=== PATIENT | male | born 1950 | race Hispanic/Latino ===

== ENCOUNTER 2019-07-14 10:32 | Emergency (ER) | payer OTHER ==
[~2019-07-14] VITALS: Ht 172.7 cm; Wt 84.4 kg
[2019-07-14 10:45] VITALS: BP 109/78; TEMP 97.5
[2019-07-14 11:19] LABS: PLATELET COUNT 210 K/uL (142-355)
[2019-07-14 11:36] LABS: POTASSIUM 4.3 mmol/L (3.6-5.2); SODIUM 137 mmol/L (136-145)
[2019-07-14 11:43] LABS: PARTIAL THROMBOPLASTIN TIME 23.4 SECONDS (24.5-33.6)
== END 2019-07-14 18:20 | disposition home or self-care (01) ==
LOC: ED 10:32
PROVIDERS: Family Medicine
DX: R07.89 Other chest pain (principal); R06.09 Other forms of dyspnea; R00.0 Tachycardia, unspecified; R42 Dizziness and giddiness
CPT/HCPCS: 36415; 80053; 81000; 82550; 83880; 84484; 85027; 85379; 85610; 85730; 93005; 96360; 99284

== ENCOUNTER 2019-08-28 20:48 | Emergency (ER) | payer OTHER ==
[~2019-08-28] VITALS: Ht 172.7 cm; Wt 84.4 kg
[2019-08-28 21:37] LABS: PLATELET COUNT 218 K/uL (142-355)
[2019-08-28 21:49] LABS: PARTIAL THROMBOPLASTIN TIME 23.3 SECONDS (24.5-33.6)
[2019-08-29 02:47] VITALS: BP 109/81; TEMP 98.1
== END 2019-08-29 02:49 | disposition short-term general hospital (02) ==
LOC: ED 20:48
PROVIDERS: Family Medicine
DX: G45.9 Transient cerebral ischemic attack, unspecified (principal); R41.82 Altered mental status, unspecified
CPT/HCPCS: 80053; 81000; 85027; 85379; 85610; 85730; 93005; 99285

== ENCOUNTER 2019-12-14 11:08 | Outpatient (CLI) | payer OTHER | END 2019-12-14 19:21 | disposition home or self-care (01) | LOC: RAD 11:08 | DX: M54.5 Low back pain (principal) ==

== ENCOUNTER 2020-01-22 09:18 | Outpatient (CLI) | payer OTHER | END 2020-01-22 20:41 | disposition home or self-care (01) | LOC: MRI 09:18 | DX: M54.5 Low back pain (principal) ==

== ENCOUNTER 2020-07-08 15:06 | Outpatient (CLI) | payer OTHER | END 2020-07-08 19:38 | disposition home or self-care (01) | LOC: RAD 15:06 | PROVIDERS: ATTEND Nurse Practitioner Family | DX: Z20.828 Contact with and (suspected) exposure to other viral communicable diseases (principal) ==

== ENCOUNTER 2020-07-12 15:49 | Emergency (ER) | payer OTHER ==
[~2020-07-12] VITALS: Ht 172.7 cm; Wt 84.4 kg
[2020-07-12 19:17] LABS: PLATELET COUNT 269 K/uL (142-355)
[2020-07-12 19:30] LABS: POTASSIUM 4.8 mmol/L (3.6-5.2)
[2020-07-12 21:05] VITALS: BP 90/68; TEMP 97.4
== END 2020-07-12 21:05 | disposition home or self-care (01) ==
LOC: ED 15:49
PROVIDERS: Family Medicine
DX: U07.1 COVID-19 (principal); R09.02 Hypoxemia; R05 Cough
CPT/HCPCS: 36415; 80053; 81000; 85027; 87635; 99283; U0003

== ENCOUNTER 2020-08-11 14:03 | Outpatient (CLI) | payer OTHER ==
[2020-08-11 15:59] LABS: POTASSIUM 4.8 mmol/L (3.6-5.2)
== END 2020-08-11 21:46 | disposition home or self-care (01) ==
LOC: LABW 14:03
PROVIDERS: ATTEND Nurse Practitioner Adult Health
DX: R42 Dizziness and giddiness (principal); R06.02 Shortness of breath; I48.20 Chronic atrial fibrillation, unspecified
CPT/HCPCS: 36415; 80048; 80162

== ENCOUNTER 2020-08-17 10:54 | Outpatient (CLI) | payer OTHER ==
[2020-08-17 11:37] LABS: POTASSIUM 4.2 mmol/L (3.6-5.2)
== END 2020-08-17 22:12 | disposition home or self-care (01) ==
LOC: LABW 10:54
PROVIDERS: ATTEND Nurse Practitioner Adult Health
DX: E86.0 Dehydration (principal); N28.89 Other specified disorders of kidney and ureter
CPT/HCPCS: 36415; 80048

== ENCOUNTER 2020-08-22 16:11 | Outpatient (CLI) | payer OTHER ==
[2020-08-22 17:04] LABS: POTASSIUM 4.4 mmol/L (3.6-5.2)
== END 2020-08-22 21:01 | disposition home or self-care (01) ==
LOC: LABW 16:11
PROVIDERS: ATTEND Nurse Practitioner Adult Health
DX: I48.0 Paroxysmal atrial fibrillation (principal); Z79.899 Other long term (current) drug therapy; E86.0 Dehydration; N28.89 Other specified disorders of kidney and ureter
CPT/HCPCS: 36415; 80048; 80162

== ENCOUNTER 2021-01-06 17:09 | Emergency (ER) | payer OTHER ==
[~2021-01-06] VITALS: Ht 172.7 cm; Wt 85.3 kg
[2021-01-06 18:21] LABS: PLATELET COUNT 239 K/uL (142-355)
[2021-01-06 18:30] LABS: POTASSIUM 3.8 mmol/L (3.6-5.2); SODIUM 131 mmol/L (136-145)
[2021-01-06 18:44] LABS: PARTIAL THROMBOPLASTIN TIME 24.8 SECONDS (24.5-33.6)
[2021-01-06 20:55] VITALS: BP 125/62; TEMP 97.9
== END 2021-01-06 20:55 | disposition home or self-care (01) ==
LOC: ED 17:09
PROVIDERS: Hospitalist
DX: G62.89 Other specified polyneuropathies (principal); Z86.73 Personal history of transient ischemic attack (TIA), and cerebral infarction without residual deficits
CPT/HCPCS: 36415; 80053; 82550; 83880; 84484; 85027; 85610; 85730; 93005; 99283

== ENCOUNTER 2021-02-22 14:00 | Outpatient (CLI) | payer OTHER | END 2021-02-22 20:39 | disposition home or self-care (01) | LOC: LABW 14:00 | PROVIDERS: ATTEND Psychiatry & Neurology Neurology | DX: R20.2 Paresthesia of skin (principal); R73.9 Hyperglycemia, unspecified; E61.1 Iron deficiency | CPT/HCPCS: 36415; 82607; 82728; 82746; 83036; 84165; 84207; 84425; 84443; 86334 ==

== ENCOUNTER 2021-07-11 10:10 | Outpatient (CLI) | payer OTHER | END 2021-07-11 19:18 | disposition home or self-care (01) | LOC: RAD 10:10 | PROVIDERS: ATTEND Nurse Practitioner Family | DX: R09.1 Pleurisy (principal) ==

== ENCOUNTER 2021-08-08 17:40 | Emergency (ER) | payer OTHER ==
[~2021-08-08] VITALS: Ht 172.7 cm; Wt 85.3 kg
[2021-08-08 17:46] VITALS: BP 143/58; TEMP 98.2
== END 2021-08-08 18:38 | disposition home or self-care (01) ==
LOC: ED 17:40
DX: S51.832A Puncture wound without foreign body of left forearm, initial encounter (principal); W54.0XXA Bitten by dog, initial encounter; Y92.89 Other specified places as the place of occurrence of the external cause
CPT/HCPCS: 90715; 96372; 99283; J0690; J1885

== ENCOUNTER 2021-10-30 16:55 | Outpatient (CLI) | payer OTHER ==
[2021-10-30 18:00] LABS: PLATELET COUNT 205 K/uL (142-355)
[2021-10-30 18:14] LABS: POTASSIUM 4.7 mmol/L (3.6-5.2)
== END 2021-10-30 19:20 | disposition home or self-care (01) ==
LOC: LABW 16:55
PROVIDERS: ATTEND Plastic Surgery
DX: Z01.812 Encounter for preprocedural laboratory examination (principal); Z01.818 Encounter for other preprocedural examination; Z01.811 Encounter for preprocedural respiratory examination; Z01.810 Encounter for preprocedural cardiovascular examination; K14.8 Other diseases of tongue
CPT/HCPCS: 36415; 80053; 85027; 85610; 93005

== ENCOUNTER 2022-02-27 18:05 | Emergency (ER) | payer OTHER ==
[~2022-02-27] VITALS: Ht 172.7 cm; Wt 85.3 kg
[2022-02-27 19:21] LABS: PLATELET COUNT 96 K/uL (142-355)
[2022-02-27 19:45] LABS: PARTIAL THROMBOPLASTIN TIME 25.9 SECONDS (24.5-33.6)
[2022-02-27 21:20] VITALS: BP 126/65; TEMP 98.1
== END 2022-02-27 21:20 | disposition left against medical advice (07) ==
LOC: ED 18:05
PROVIDERS: Emergency Medicine
DX: G45.9 Transient cerebral ischemic attack, unspecified (principal); Z53.29 Procedure and treatment not carried out because of patient's decision for other reasons; R20.0 Anesthesia of skin
CPT/HCPCS: 36415; 80053; 81002; 82533; 83930; 83935; 84133; 84300; 84443; 84484; 85027; 85610; 85730; 99283

== ENCOUNTER 2022-03-06 09:06 | Outpatient (CLI) | payer OTHER ==
[~2022-03-06] VITALS: Ht 170.2 cm; Wt 85.7 kg
== END 2022-03-06 17:00 | disposition home or self-care (01) ==
LOC: NM 09:06
PROVIDERS: ATTEND Specialist
DX: E78.2 Mixed hyperlipidemia (principal); R42 Dizziness and giddiness; Z86.73 Personal history of transient ischemic attack (TIA), and cerebral infarction without residual deficits; I77.9 Disorder of arteries and arterioles, unspecified; I48.20 Chronic atrial fibrillation, unspecified; Z09 Encounter for follow-up examination after completed treatment for conditions other than malignant neoplasm
CPT/HCPCS: A9500; J2785

== ENCOUNTER 2022-04-30 14:16 | Outpatient (CLI) | payer OTHER ==
[2022-04-30 14:41] LABS: PLATELET COUNT 292 K/uL (142-355)
[2022-04-30 14:44] LABS: POTASSIUM 3.9 mmol/L (3.6-5.2)
== END 2022-04-30 20:09 | disposition home or self-care (01) ==
LOC: LABW 14:16
PROVIDERS: ATTEND Specialist
DX: R94.39 Abnormal result of other cardiovascular function study (principal)
CPT/HCPCS: 36415; 80048; 85027

== ENCOUNTER 2022-09-12 07:54 | Outpatient (CLI) | payer BC, OTHER ==
[2022-09-12 09:14] LABS: PARTIAL THROMBOPLASTIN TIME 25.3 SECONDS (24.5-33.6)
== END 2022-09-12 19:01 | disposition home or self-care (01) ==
LOC: US 07:54
PROVIDERS: ATTEND Internal Medicine Endocrinology, Diabetes & Metabolism
DX: Z01.89 Encounter for other specified special examinations (principal); R18.8 Other ascites; Z79.899 Other long term (current) drug therapy; I48.20 Chronic atrial fibrillation, unspecified
CPT/HCPCS: 36415; 80074; 82140; 85610; 85730

== ENCOUNTER 2022-09-26 08:56 | Outpatient (CLI) | payer BC, OTHER ==
[2022-09-26 11:09] LABS: PLATELET COUNT 323 K/uL (142-355)
== END 2022-09-26 18:53 | disposition home or self-care (01) ==
LOC: CT 08:56 → LABW 09-28 09:30 → CT 09-28 09:30
PROVIDERS: ATTEND Internal Medicine Endocrinology, Diabetes & Metabolism
DX: R14.0 Abdominal distension (gaseous) (principal); R10.819 Abdominal tenderness, unspecified site; I48.91 Unspecified atrial fibrillation; R06.09 Other forms of dyspnea
CPT/HCPCS: 36415; 80053; 85027; Q9963

== ENCOUNTER 2022-11-21 09:06 | Outpatient (CLI) | payer BC, OTHER | END 2022-11-21 18:52 | disposition home or self-care (01) | LOC: MRI 09:06 | PROVIDERS: ATTEND Internal Medicine Endocrinology, Diabetes & Metabolism | DX: R53.1 Weakness (principal); Z86.73 Personal history of transient ischemic attack (TIA), and cerebral infarction without residual deficits; Z09 Encounter for follow-up examination after completed treatment for conditions other than malignant neoplasm ==

== ENCOUNTER 2022-11-28 08:52 | Outpatient (CLI) | payer BC, OTHER | END 2022-11-28 20:07 | disposition home or self-care (01) | LOC: MRI 08:52 | PROVIDERS: ATTEND Internal Medicine Endocrinology, Diabetes & Metabolism | DX: R53.1 Weakness (principal); Z86.73 Personal history of transient ischemic attack (TIA), and cerebral infarction without residual deficits; Z09 Encounter for follow-up examination after completed treatment for conditions other than malignant neoplasm ==